=== PATIENT | male | born 1985 ===

== ENCOUNTER 2018-07-29 17:46 | Emergency (ER) | payer SELFPAY ==
--- NOTE | 2018-07-29 18:14 | Emergency Department Report ---
Blank Doc - Documentation Documentation: This is a 33-year-old male that presents with right eye pain. This initial assessment/diagnostic orders/clinical plan/treatment(s) is/are subject to change based on patient's health status, clinical progression and re- assessment by fellow clinical providers in the ED. Further treatment and workup at subsequent clinical providers discretion. Patient/guardians urged not to elope from the ED as their condition may be serious if not clinically assessed and managed. Initial orders include: 1- Patient sent to [facility] for further evaluation and treatment 2- beth lamps
--- NOTE | 2018-07-29 21:28 | Emergency Department Report ---
Eye Injury/Foreign Body - HPI Duration: 3 Days Eye Location: Right Severity: Mild Tetanus Status: Unknown Eye Symptoms: Eye Pain: Yes, Blurred Vision: No, Eye Redness: Yes, Grinding/Hammering Metal: No, Used Eye Protection: No, Contact Lens Use: No, Recalls Injury: No, Photophobia: No Other History: This is a 33-year-old -[place] male who presents to the emergency room with a painful rash around right eye. Patient states initially there was pain from right upper eyelid down to right nostral then a rash appeared. Patient states he initially thought he got bit by an insect. Patient denies visual changes, drainage, swelling. ED Review of Systems ROS: Stated complaint: RT EYE RASH/SWELLING/PAIN Other details as noted in HPI Constitutional: denies: chills, fever Eyes: eye pain (right eye). denies: eye discharge, vision change Respiratory: denies: cough, shortness of breath, wheezing Cardiovascular: denies: chest pain, palpitations Gastrointestinal: denies: abdominal pain, nausea, diarrhea Skin: rash (rash from right upper eyelid to right side of nose). denies: lesions Neurological: denies: headache, weakness, paresthesias Psychiatric: denies: anxiety, depression ED Past Medical Hx - Past Medical History Previous Medical History?: No - Surgical History Past Surgical History?: No - Social History Smoking Status: Never Smoker Substance Use Type: None - Medications Home Medications: Home Medications Medication Instructions Recorded Confirmed Last Taken Type Ibuprofen [Motrin 800 MG tab] 800 mg PO Q8HR PRN #20 tablet 07/29/18 Unknown Rx Neomycin/Bacitracin/Polymyxinb 14.2 gm TP BID #1 oint...g. 07/29/18 Unknown Rx [Triple Antibiotic Ointment] Valacyclovir HCl [Valtrex] 1,000 mg PO TID #30 tablet 07/29/18 Unknown Rx Eye Injury Exam - Exam General: Vital signs noted. No distress. Alert and acting appropriately. - Visual Acuity Right Vision Acuity Degree: 20/30 Eye Exam: Right Injection, Both EOMI, Neither Chemosis, Neither Abnormal Pupil, Neither Eye Foreign Body, Neither Lid Foreign Body, Neither Mucous Discharge, Neither Purulent Discharge, Neither Fluorescein Uptake, Neither Fluorescein Uptake (slit lamp), Neither Cell/Flare (slit lamp), Neither Corneal Edema, Neither Photophobia Left Vision Acuity Degree: 20/25 ED Course Vital Signs 07/29/18 18:12 Temperature 97.9 F Pulse Rate 86 Respiratory 18 Rate Blood Pressure 149/83 O2 Sat by Pulse 99 Oximetry ED Medical Decision Making - Medical Decision Making Patient was examined by me. Vitals are normal and patient is in no acute distress. I obtained a visual acuity exam. Patient is neurologically intact no signs of entrapment. There is a vesicular erythematous rash from right upper eyelid following a dermatome down to the right side of face. It appears this is herpes zoster ophthalmicus. Given valacyclovir 1 g and ibuprofen while in the ER. Instructed to apply a cool compress, apply triple antibiotic ointment to prevent infection. Start valacyclovir 1 g by mouth every 8 hours for 10 days and ibuprofen 800 mg by mouth every 8 hours when necessary for pain. Referral to fitter hand and instructed to follow-up with them in the next 24 hours. Patient is stable to be discharged home with outpatient follow-up. Plan discussed with patient to discharge home and treat outpatient. He agrees with ER plan. Patient discharged home in stable condition. Critical care attestation.: If time is entered above; I have spent that time in minutes in the direct care of this critically ill patient, excluding procedure time. ED Disposition Clinical Impression: Facial rash, Herpes zoster ophthalmicus of right eye Disposition: DC-01 TO HOME OR SELFCARE Is pt being admited?: No Does the pt Need Aspirin: No Condition: Stable Instructions: Herpes Zoster (ED) Additional Instructions: He is a cool compress to decrease pain and swelling. Apply triple antibiotic or Neosporin topical antibiotic ointment to the areas twice a day and to prevent infection. Complete full course of antiviral medication as prescribed. Follow up with an fitter hand within the next 24 hours. I have provided a referral below 1 fitter hand for follow-up. Return to the emergency room if you start to have visual changes or increase in pain. Prescriptions: Ibuprofen [Motrin 800 MG tab] 800 mg PO Q8HR PRN #20 tablet PRN Reason: Pain , Severe (7-10) Neomycin/Bacitracin/Polymyxinb [Triple Antibiotic Ointment] 14.2 gm TP BID #1 oint...g. Valacyclovir HCl [Valtrex] 1,000 mg PO TID #30 tablet Referrals: ANGELICA HERNANDEZ MD [Primary Care Provider] - 3-5 Days DORA ARNOLD MD [Staff Physician] - 3-5 Days [facility], [facility] [Provider Group] - 3-5 Days [facility] 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
[2018-07-29 22:37] VITALS: BP 154/97
== END 2018-07-29 22:37 | disposition home or self-care (01) ==
LOC: ED 17:46
DX: B02.30 Zoster ocular disease, unspecified (principal); R21 Rash and other nonspecific skin eruption
CPT/HCPCS: 99283

== ENCOUNTER 2019-01-29 13:25 | Emergency (ER) | payer SELFPAY ==
[2019-01-29] MEDS ORDERED: LIDOCAINE VISCOUS 2% 15 ML ORAL LIQD MM ONE (14:20)
[2019-01-29] MEDS ORDERED: BENZONATATE 100 MG CAP PO ONE (14:20)
[2019-01-29] MEDS ORDERED: IBUPROFEN 800 MG TAB PO ONE (14:20)
--- NOTE | 2019-01-29 14:54 | Emergency Department Report ---
- General Chief Complaint: Sore Throat Stated Complaint: SORE THROAT/MUCUS/LOSS OF VOICE Time Seen by Provider: 01/29/19 13:54 Source: patient Mode of arrival: Ambulatory Limitations: No Limitations - History of Present Illness Initial Comments: This is a 33-year-old male nontoxic, well nourished in appearance, no acute signs of distress presents to the ED with c/o of productive cough, sore throat, body aches, rhinorrhea, nasal congestion x1 week. Patient describes productive cough as yellow mucus production. Patient denies any sick contact. Patient denies any recent travels, long car, recent hospital stays. Patient denies any calf pain or calf tenderness. Patient denies any chest pain, short of breath, fever, chills, nausea, vomiting, hemoptysis, numbness, tingling, headache or stiff neck. He denies any allergies or significant past medical history. MD Complaint: cough, sore throat, rhinorrhea, nasal congestion - Related Data Previous Rx's Medication Instructions Recorded Last Taken Type Ibuprofen [Motrin 800 MG tab] 800 mg PO Q8HR PRN #20 tablet 07/29/18 Unknown Rx Neomycin/Bacitracin/Polymyxinb 14.2 gm TP BID #1 oint...g. 07/29/18 Unknown Rx [Triple Antibiotic Ointment] Valacyclovir HCl [Valtrex] 1,000 mg PO TID #30 tablet 07/29/18 Unknown Rx Azithromycin [Zithromax Z-KASIA] 250 mg PO DAILY #6 tablet 01/29/19 Unknown Rx Benzonatate [Tessalon Perles] 100 mg PO Q8HR PRN #20 capsule 01/29/19 Unknown Rx Ibuprofen [Motrin] 600 mg PO Q8H PRN #20 tablet 01/29/19 Unknown Rx Nystas/Diphen/Xyl Visc/Mylanta 15 ml MM Q4H PRN 5 Days ml 01/29/19 Unknown Rx [Magic Mouthwash] Allergies Allergy/AdvReac Type Severity Reaction Status Date / Time No Known Allergies Allergy Unverified 12/29/14 14:33 ED Review of Systems ROS: Stated complaint: SORE THROAT/MUCUS/LOSS OF VOICE Other details as noted in HPI Constitutional: denies: chills, fever Eyes: denies: eye pain, eye discharge, vision change ENT: throat pain, congestion. denies: ear pain Respiratory: cough. denies: shortness of breath, wheezing Cardiovascular: denies: chest pain, palpitations Endocrine: no symptoms reported Gastrointestinal: denies: abdominal pain, nausea, diarrhea Genitourinary: denies: urgency, dysuria Musculoskeletal: denies: back pain, joint swelling, arthralgia Skin: denies: rash, lesions Neurological: denies: headache, weakness, paresthesias Psychiatric: denies: anxiety, depression Hematological/Lymphatic: denies: easy bleeding, easy bruising ED Past Medical Hx - Past Medical History Previous Medical History?: No - Surgical History Past Surgical History?: No - Social History Smoking Status: Never Smoker Substance Use Type: None - Medications Home Medications: Home Medications Medication Instructions Recorded Confirmed Last Taken Type Ibuprofen [Motrin 800 MG tab] 800 mg PO Q8HR PRN #20 tablet 07/29/18 Unknown Rx Neomycin/Bacitracin/Polymyxinb 14.2 gm TP BID #1 oint...g. 07/29/18 Unknown Rx [Triple Antibiotic Ointment] Valacyclovir HCl [Valtrex] 1,000 mg PO TID #30 tablet 07/29/18 Unknown Rx Azithromycin [Zithromax Z-KASIA] 250 mg PO DAILY #6 tablet 01/29/19 Unknown Rx Benzonatate [Tessalon Perles] 100 mg PO Q8HR PRN #20 capsule 01/29/19 Unknown Rx Ibuprofen [Motrin] 600 mg PO Q8H PRN #20 tablet 01/29/19 Unknown Rx Nystas/Diphen/Xyl Visc/Mylanta 15 ml MM Q4H PRN 5 Days ml 01/29/19 Unknown Rx [Magic Mouthwash] ED Physical Exam - General Limitations: No Limitations General appearance: alert, in no apparent distress - Head Head exam: Present: atraumatic, normocephalic - Eye Eye exam: Present: normal appearance, PERRL, EOMI - Expanded ENT Exam Expanded Ear exam: Present: normal external inspection Mouth exam: Present: normal external inspection. Absent: drooling, trismus, muffled voice Teeth exam: Present: normal inspection Throat exam: Positive: tonsillar erythema, other (uvula midline). Negative: tonsillomegaly, tonsillar exudate, R peritonsillar mass, L peritonsillar mass - Neck Neck exam: Present: normal inspection, full ROM. Absent: tenderness, meningismus, lymphadenopathy - Respiratory Respiratory exam: Present: normal lung sounds bilaterally. Absent: respiratory distress, wheezes, rales, rhonchi, stridor, chest wall tenderness, accessory muscle use, decreased breath sounds, prolonged expiratory - Cardiovascular Cardiovascular Exam: Present: regular rate, normal rhythm, normal heart sounds. Absent: bradycardia, tachycardia, irregular rhythm, systolic murmur, diastolic murmur, rubs, gallop - Rectal Rectal exam: Present: deferred - Extremities Exam Extremities exam: Present: normal inspection, full ROM - Back Exam Back exam: Present: normal inspection, full ROM. Absent: tenderness, CVA tenderness (R), CVA tenderness (L), muscle spasm, paraspinal tenderness, vertebral tenderness, rash noted - Neurological Exam Neurological exam: Present: alert, oriented X3, normal gait - Psychiatric Psychiatric exam: Present: normal affect, normal mood - Skin Skin exam: Present: warm, dry, intact, normal color. Absent: rash ED Course Vital Signs 01/29/19 13:42 Temperature 98 F Pulse Rate 85 Respiratory 18 Rate Blood Pressure 144/81 O2 Sat by Pulse 98 Oximetry - Reevaluation(s) Reevaluation #1: 01/29/19 14:54 Patient is speaking in full sentences with no signs of distress noted. ED Medical Decision Making - Medical Decision Making This is a 33-year-old male that presents with pharyngitis and bronchitis. Patient is stable and was examined by me. Chest x-ray has been obtained and dictated by radiologist with normal exam. Patient is notified of x-ray results with no questions noted. Patient is discharged with zpack. Patient was instructed to increase hydration, rest and take Motrin for fever episodes. Patient received motrin and tesslone perrls in the ED. Vitals stable. Patient is nonfebrile and normal heart rate. Patient was instructed Follow-up with a primary care doctor in 3-5 days or if symptoms worsen and continue return to emergency room as soon as possible. At time time of discharge, the patient does not seem toxic or ill in appearance. No acute signs of distress noted. Patient agrees to discharge treatment plan of care. No further questions noted by the patient. Critical care attestation.: If time is entered above; I have spent that time in minutes in the direct care of this critically ill patient, excluding procedure time. ED Disposition Clinical Impression: Bronchitis Pharyngitis Qualifiers: Pharyngitis/tonsillitis etiology: unspecified etiology Qualified Code(s): J02.9 - Acute pharyngitis, unspecified Disposition: TO HOME OR SELFCARE Is pt being admited?: No Does the pt Need Aspirin: No Condition: Stable Instructions: Acute Bronchitis (ED), Pharyngitis (ED) Additional Instructions: Follow-up with a primary care doctor in 3-5 days or if symptoms worsen and continue return to emergency room as soon as possible. Prescriptions: Nystas/Diphen/Xyl Visc/Mylanta [Magic Mouthwash] 15 ml MM Q4H PRN 5 Days ml PRN Reason: Sore Throat Ibuprofen [Motrin] 600 mg PO Q8H PRN #20 tablet PRN Reason: Pain Benzonatate [Tessalon Perles] 100 mg PO Q8HR PRN #20 capsule PRN Reason: Cough Azithromycin [Zithromax Z-KASIA] 250 mg PO DAILY #6 tablet Referrals: PRIMARY CAREMD [Referring] - 3-5 Days NIKKI CARRANZA MD [Staff Physician] - 3-5 Days [facility] [Outside] - 3-5 Days Forms: Work/School Release Form(ED)
--- NOTE | 2019-01-29 15:01 | XRay Report ---
CHEST 2 VIEWS INDICATION: cough. COMPARISON: None FINDINGS: Support devices: None. Heart: Within normal limits. Lungs/pleura: No acute air space or interstitial disease. No pneumothorax. Additional findings: None. IMPRESSION: Normal chest x-ray Signer Name: Leroy Rojas Jr, MD Signed: 01/29/2019 2:56 PM Workstation Name: [id number]
[2019-01-29 15:30] VITALS: BP 140/78
== END 2019-01-29 15:29 | disposition home or self-care (01) ==
LOC: ED 13:25
DX: J40 Bronchitis, not specified as acute or chronic (principal); J02.9 Acute pharyngitis, unspecified; Z79.899 Other long term (current) drug therapy
CPT/HCPCS: 71046

== ENCOUNTER 2019-05-02 13:39 | Emergency (ER) | payer SELFPAY ==
[2019-05-02 17:11] VITALS: BP 145/84
--- NOTE | 2019-05-02 17:16 | Emergency Department Report ---
- General Chief Complaint: Upper Respiratory Infection Stated Complaint: FLU SYM Time Seen by Provider: 05/02/19 17:06 Source: patient Mode of arrival: Ambulatory Limitations: No Limitations - History of Present Illness MD Complaint: cough, sore throat, rhinorrhea, nasal congestion - Related Data Previous Rx's Medication Instructions Recorded Last Taken Type Ibuprofen [Motrin 800 MG tab] 800 mg PO Q8HR PRN #20 tablet 07/29/18 Unknown Rx Neomycin/Bacitracin/Polymyxinb 14.2 gm TP BID #1 oint...g. 07/29/18 Unknown Rx [Triple Antibiotic Ointment] Valacyclovir HCl [Valtrex] 1,000 mg PO TID #30 tablet 07/29/18 Unknown Rx Azithromycin [Zithromax Z-KASIA] 250 mg PO DAILY #6 tablet 01/29/19 Unknown Rx Benzonatate [Tessalon Perles] 100 mg PO Q8HR PRN #20 capsule 01/29/19 Unknown Rx Ibuprofen [Motrin] 600 mg PO Q8H PRN #20 tablet 01/29/19 Unknown Rx Nystas/Diphen/Xyl Visc/Mylanta 15 ml MM Q4H PRN 5 Days ml 01/29/19 Unknown Rx [Magic Mouthwash] Brompheniram/Phenylephrine/Dm 10 ml PO DAILY PRN #473 liquid 05/02/19 Unknown Rx [Bpm-Dm-Phen Syrup] Allergies Allergy/AdvReac Type Severity Reaction Status Date / Time No Known Allergies Allergy Unverified 12/29/14 14:33 ED Review of Systems ROS: Stated complaint: FLU SYM Other details as noted in HPI ED Past Medical Hx - Past Medical History Previous Medical History?: No - Surgical History Past Surgical History?: No - Social History Smoking Status: Former Smoker Substance Use Type: None - Medications Home Medications: Home Medications Medication Instructions Recorded Confirmed Last Taken Type Ibuprofen [Motrin 800 MG tab] 800 mg PO Q8HR PRN #20 tablet 07/29/18 Unknown Rx Neomycin/Bacitracin/Polymyxinb 14.2 gm TP BID #1 oint...g. 07/29/18 Unknown Rx [Triple Antibiotic Ointment] Valacyclovir HCl [Valtrex] 1,000 mg PO TID #30 tablet 07/29/18 Unknown Rx Azithromycin [Zithromax Z-KASIA] 250 mg PO DAILY #6 tablet 01/29/19 Unknown Rx Benzonatate [Tessalon Perles] 100 mg PO Q8HR PRN #20 capsule 01/29/19 Unknown Rx Ibuprofen [Motrin] 600 mg PO Q8H PRN #20 tablet 01/29/19 Unknown Rx Nystas/Diphen/Xyl Visc/Mylanta 15 ml MM Q4H PRN 5 Days ml 01/29/19 Unknown Rx [Magic Mouthwash] Brompheniram/Phenylephrine/Dm 10 ml PO DAILY PRN #473 liquid 05/02/19 Unknown Rx [Bpm-Dm-Phen Syrup] ED Physical Exam - General Limitations: No Limitations ED Course Vital Signs 05/02/19 17:06 Temperature 97.9 F Pulse Rate 92 H Respiratory 22 Rate Blood Pressure 145/84 Blood Pressure 145/84 [Right] O2 Sat by Pulse 96 Oximetry Critical care attestation.: If time is entered above; I have spent that time in minutes in the direct care of this critically ill patient, excluding procedure time. ED Disposition Clinical Impression: URI (upper respiratory infection), Cough Disposition: DC-01 TO HOME OR SELFCARE Is pt being admited?: No Does the pt Need Aspirin: No Condition: Stable Instructions: Upper Respiratory Infection (ED) Prescriptions: Brompheniram/Phenylephrine/Dm [Bpm-Dm-Phen Syrup] 10 ml PO DAILY PRN #473 liquid PRN Reason: cough and congestion Referrals: PRIMARY CARE, [Primary Care Provider] - 3-5 Days [facility] [Provider Group] - 3-5 Days
== END 2019-05-02 18:00 | disposition home or self-care (01) ==
LOC: ED 13:39
DX: J06.9 Acute upper respiratory infection, unspecified (principal); Z87.891 Personal history of nicotine dependence; Z79.899 Other long term (current) drug therapy
CPT/HCPCS: 99281

== ENCOUNTER 2019-05-05 10:25 | Emergency (ER) | payer SELFPAY ==
[2019-05-05 10:42] VITALS: BP 145/83
--- NOTE | 2019-05-05 13:17 | Emergency Department Report ---
Chief Complaint: Upper Respiratory Infection Stated Complaint: SOB/CHEST TIGHTNESS Time Seen by Provider: 05/05/19 12:57 - HPI History of Present Illness: 34-year-old -[place] male resents to the emergency room complaining of sore throat and nasal congestion. With cough. Patient states that he was seen here on the 13th of this month and was prescribed cough medicine which was Bromfed but never took the medicine. Patient denies any fever chills no nausea no vomiting. Patient reports that his fever that he had prior has improved. Patient denies any shortness of breath no recent travels. - Exam Vital Signs: Vital Signs 05/05/19 10:41 Temperature 97.5 F L Pulse Rate 79 Respiratory 18 Rate Blood Pressure 145/83 [Right] O2 Sat by Pulse 95 Oximetry Physical Exam: Gen: alert oriented NAD Cardic: regular rate and rhythm no murmurs appreciated Resp: Clear to auscultation bilateral no wheezing no rales or rhonchi. Abdomen: Soft nontender nondistended normal bowel sounds. Neuro ambulatory without difficulty MSE screening note: Focused history and physical exam performed. Due to findings the following was ordered: 34-year-old -[place] male resents to the emergency room complaining of sore throat and nasal congestion. With cough. Patient states that he was seen here on the 13 of this month and was prescribed cough medicine which was Bromfed but never took the medicine. Patient denies any fever chills no nausea no vomiting. Patient reports that his fever that he had prior has improved. Patient denies any shortness of breath no recent travels. Discussed with patient to fill his prescription that was given to him on 05/02/2019 and to follow-up with his primary care provider. ED Disposition for MSE Disposition: Z-07 MED SCREENING EXAM-LEFT Is pt being admited?: No Does the pt Need Aspirin: No Condition: Stable Additional Instructions: Discussed with patient to fill his prescription that was given to him on 05/02/2019 and to follow-up with his primary care provider. Referrals: PRIMARY CARE, [Primary Care Provider] - 3-5 Days [facility] [Provider Group] - 3-5 Days
== END 2019-05-05 13:31 | disposition left against medical advice (07) ==
LOC: ED 10:25
DX: R09.81 Nasal congestion (principal); R05 Cough; J02.9 Acute pharyngitis, unspecified
CPT/HCPCS: 99281